=== PATIENT | female | born 1960 | race Caucasian/White ===

== ENCOUNTER 2018-01-24 16:58 | Observation (INO) ==
[2018-01-24 19:59] LABS: BASOPHILS # (AUTO) 0.1 X10^3/uL (0.0-0.1); BASOPHILS % (AUTO) 0.7 % (0.2-1.0); EOSINOPHILS # (AUTO) 0.7 x10^3/uL (0.0-0.2); HEMATOCRIT 32.7 % (36.0-47.0); HEMOGLOBIN 10.4 g/dL (12.0-16.0); LYMPHOCYTES # (AUTO) 2.3 X10^3/uL (1.3-2.9); LYMPHOCYTES % (AUTO) 19.1 % (21.0-51.0); MEAN CORPUSCULAR HEMOGLOBIN 23.3 pg (27.0-34.0); MEAN CORPUSCULAR HGB CONC 31.9 g/dL (33.0-35.0); MEAN CORPUSCULAR VOLUME 73.1 fL (80.0-100.0); MEAN PLATELET VOLUME 7.7 fL (7.4-11.0); MONOCYTES # (AUTO) 0.6 x10^3/uL (0.3-0.8); MONOCYTES % (AUTO) 4.5 % (0.0-13.0); NEUTROPHILS # (AUTO) 8.5 x10^3/uL (2.2-4.8); NEUTROPHILS % (AUTO) 69.7 % (42.0-75.0); PLATELET COUNT 351 X10^3/uL (150.0-450.0); RED BLOOD COUNT 4.47 X10^6/uL (3.5-5.4); RED CELL DISTRIBUTION WIDTH 18.4 % (11.6-16.5); WHITE BLOOD COUNT 12.3 X10^3/uL (3.6-10.0)
[2018-01-24 20:05] LABS: ANISOCYTOSIS SLIGHT; HYPOCHROMASIA 1+; MICROCYTOSIS SLIGHT; PLATELET MORPHOLOGY COMMENT NORMAL (NORMAL)
[2018-01-24 20:10] LABS: BILIRUBIN,URINE NEGATIVE (NEGATIVE); BLOOD/HEMOGLOBIN,URINE 1+ (NEGATIVE); GLUCOSE, URINE NEGATIVE (NEGATIVE); KETONES,URINE NEGATIVE (NEGATIVE); LEUKOCYTE ESTERASE ,URINE 2+ (NEGATIVE); NITRITES,URINE NEGATIVE (NEGATIVE); PROTEIN,URINE NEGATIVE (NEGATIVE); UROBILINOGEN,URINE NORMAL (NORMAL)
[2018-01-24 20:11] LABS: APPEARANCE,URINE CLEAR (CLEAR); COLOR,URINE YELLOW (YELLOW)
[2018-01-24 20:12] LABS: ALANINE AMINOTRANSFERASE 19 Units/L (12-78); ALBUMIN 4.1 g/dL (3.4-5.0); ALKALINE PHOSPHATASE 66 Units/L (46-116); ASPARTATE AMINO TRANSFERASE 17 Units/L (15-37); BLOOD UREA NITROGEN 11 mg/dL (7-18); CALCIUM 8.9 mg/dL (8.5-10.1); CARBON DIOXIDE 27.5 mmol/L (21-32); CHLORIDE 100 mmol/L (98-107); COR NA(FOR HYPERGLY) 139 mmol/L (136-145); CREATININE 0.83 mg/dL (0.55-1.02); MAGNESIUM 1.6 mg/dL (1.7-2.9); SODIUM 137 mmol/L (136-145); TOTAL PROTEIN 7.3 g/dL (6.4-8.2); eGFR NON BLACK RACES > 60 (>60)
[2018-01-24 20:18] LABS: BACTERIA,URINE TRACE /HPF (NEGATIVE); RBC,URINE 0-2 /HPF (NONE SEEN); SQUAMOUS EPITHELIAL CELL,UR FEW /HPF (NEGATIVE)
[2018-01-24 20:25] VITALS: BMI 28.7
[2018-01-24 20:25] LABS: CKMB % 2.1 % (<4); CREATINE KINASE 58 Units/L (26-192); CREATINE KINASE MB 1.2 ng/mL (0-4.0); TROPONIN I < 0.02 ng/mL (0-1.5)
[2018-01-24] MEDS ORDERED: PATIENT'S HOME MEDICATION PO SCH (21:00)
[2018-01-24] MEDS: CIPRO TAB 500 MG PO SCH (21:02)
[2018-01-24] MEDS: LOVENOX INJ 40 MG SYR SC SCH (21:02)
[2018-01-24] MEDS: MAGNESIUM SULFATE 1 GRAM/100 mL PREMIX 1 GM/100 ML BAG IV PRN ×2 (21:08→22:00)
[2018-01-25 02:07] LABS: CREATINE KINASE < 7 Units/L (26-192); CREATINE KINASE MB < 1.0 ng/mL (0-4.0); TROPONIN I 0.13 ng/mL (0-1.5)
[2018-01-25 05:09] LABS: BASOPHILS # (AUTO) 0.1 X10^3/uL (0.0-0.1); BASOPHILS % (AUTO) 0.8 % (0.2-1.0); EOSINOPHILS # (AUTO) 0.7 x10^3/uL (0.0-0.2); EOSINOPHILS % (AUTO) 6.2 % (0.9-2.9); HEMATOCRIT 33.2 % (36.0-47.0); HEMOGLOBIN 10.6 g/dL (12.0-16.0); LYMPHOCYTES # (AUTO) 2.5 X10^3/uL (1.3-2.9); MEAN CORPUSCULAR HEMOGLOBIN 23.3 pg (27.0-34.0); MEAN CORPUSCULAR VOLUME 72.6 fL (80.0-100.0); MEAN PLATELET VOLUME 8.1 fL (7.4-11.0); MONOCYTES # (AUTO) 0.6 x10^3/uL (0.3-0.8); MONOCYTES % (AUTO) 5.5 % (0.0-13.0); NEUTROPHILS # (AUTO) 7.5 x10^3/uL (2.2-4.8); NEUTROPHILS % (AUTO) 65.5 % (42.0-75.0); PLATELET COUNT 376 X10^3/uL (150.0-450.0); RED BLOOD COUNT 4.57 X10^6/uL (3.5-5.4); RED CELL DISTRIBUTION WIDTH 18.2 % (11.6-16.5); WHITE BLOOD COUNT 11.5 X10^3/uL (3.6-10.0)
[2018-01-25 05:17] LABS: ALANINE AMINOTRANSFERASE 18 Units/L (12-78); ALBUMIN 4.1 g/dL (3.4-5.0); ALKALINE PHOSPHATASE 62 Units/L (46-116); ASPARTATE AMINO TRANSFERASE 15 Units/L (15-37); BLOOD UREA NITROGEN 9 mg/dL (7-18); CALCIUM 8.7 mg/dL (8.5-10.1); CARBON DIOXIDE 27.7 mmol/L (21-32); CHLORIDE 103 mmol/L (98-107); CHOLESTEROL 175 mg/dL (0-200); COR NA(FOR HYPERGLY) 143 mmol/L (136-145); CREATININE 0.77 mg/dL (0.55-1.02); HDL CHOLESTEROL 44 mg/dL (40-60); SODIUM 141 mmol/L (136-145); TOTAL PROTEIN 7.4 g/dL (6.4-8.2); TRIGLYCERIDES 222 mg/dL (0-150); eGFR NON BLACK RACES > 60 (>60)
[2018-01-25 05:29] LABS: ANISOCYTOSIS SLIGHT; HYPOCHROMASIA 1+; PLATELET MORPHOLOGY COMMENT NORMAL (NORMAL)
--- NOTE | 2018-01-25 07:56 | DR.H&P ---
H&P - History & Physical for Day of: H&P Date: 01/25/08 - Chief Complaint Chief Complaint: Chest pain, fatigue - History of Present Illness History of Present Illness: The patient the a 57 yo WF who presents to the clinic with complaint of unusual chest pain. States similar to her previous MIs. Patient complains of pain to her back above probably line. States is a deep ache. Denies musculoskeletal pain. Has no reproducible pain in that area. Does have muscle soreness to upper scapula region. Patient denies shortness of breath or pleuritic pain. Does complain of increasing fatigue over the last several weeks. Does have history of CAD with OK 2. Has stents 3. EKG does read inferior apical infarct age presumed not recent. - Past Medical History Past Medical History: CHF, Coronary Artery Disease, Diabetes, Dyslipidemia, Hypertension, Kidney Stones, OK Additional Medical History: Low back pain - Past Surgical History Surgical History: Angioplasty/Stents, , Cholecystectomy, Hysterectomy, Ortho Surgery, Tonsillectomy Additional Surgical History: Cardiac Cath x 2 with 3 stents. Last cath [facility] - Family History Family Medical History: Diabetes Mellitus, Cancer, Hypertension - Social History Does patient currently use any type of tobacco product: No Have you used tobacco products in the last 12 months: No Type of Tobacco Use: None Alcohol Use: None Drug Use: None - Medications Home Medications: Penicillins Allergy (Verified 01/24/18 19:35) povidone-iodine [From Betadine] Allergy (Verified 01/24/18 19:35) soap [From Betadine] Allergy (Verified 01/24/18 19:35) CONTINUE taking the following medications ciprofloxacin HCl [Cipro] 1 tab PO BID 01/24/18 [History] dicyclomine 1 tab PO QID PRN 01/24/18 [History] diphenhydramine HCl 1 tab PO HS 01/24/18 [History] esomeprazole magnesium [Nexium 24HR] 1 tab PO DAILY 01/24/18 [History] hydrocodone-acetaminophen 1 tab PO TID PRN 01/24/18 [History] loratadine 1 tab PO DAILY 01/24/18 [History] montelukast [Singulair] 1 tab PO DAILY 01/24/18 [History] potassium chloride [Klor-Con M20] 1 tab PO DAILY 01/24/18 [History] simvastatin 1 tab PO HS 01/24/18 [History] tizanidine 1 tab PO TID PRN 01/24/18 [History] - Review of Systems Constitutional: Weakness, Malaise Eyes: No Symptoms Reported ENT: No Symptoms Reported Respiratory: No Symptoms Reported Cardiovascular: Chest Pain Gastrointestinal: Nausea Genitourinary: No Symptoms Reported Musculoskeletal: See HPI, Back Pain Skin: No Symptoms Reported Neurological: No Symptoms Reported - Physical Exam Vital Signs: Temperature 98.8 F Pulse Rate [Radial] 82 Respiratory Rate 20 Blood Pressure [Right Arm] 139/73 Blood Pressure [Left Arm] 123/63 Blood Pressure 119/62 O2 Sat by Pulse Oximetry 98 Oriented: Normal Eyes: Normal Ear: Normal Nose: Normal Throat: Normal Respiratory: Clear Throughout Cardiovascular: Normal : Normal Auscultation: Bowel Sounds: Normal Palpation: Normal Tenderness: Normal Skin: Normal Musculoskeletal: Back:Thoracic (Upper scapula tenderness) Psychiatric: Normal Mood Description: Anxious Affect: Anxious Speech Pattern: Clear - Assessment/Plan (1) Chest discomfort Status: Acute Plan: serial cardiac enzymes and EKGs. Possible transfer to [facility] (2) CAD (coronary artery disease) Status: Chronic Plan: home medications (3) HTN (hypertension) Qualifiers: Hypertension type: essential hypertension Qualified Code(s): I10 - Essential (primary) hypertension Status: Chronic Plan: continue home medications (4) Diabetes mellitus Qualifiers: Diabetes mellitus type: type 2 Chronic kidney disease stage: stage 1 Status: Chronic Plan: monitor blood sugars with when necessary coverage - Allergies Allergies/Adverse Reactions: Allergies Allergy/AdvReac Type Severity Reaction Status Date / Time Penicillins Allergy Verified 01/24/18 19:35 povidone-iodine Allergy Verified 01/24/18 19:35 [From Betadine] soap [From Betadine] Allergy Verified 01/24/18 19:35
[2018-01-25] MEDS ORDERED: ZOFRAN TAB 4 MG SL PRN (08:01)
[2018-01-25] MEDS ORDERED: ZOFRAN INJ 4 MG VIAL IVP PRN ×2 (08:01→12:56)
[2018-01-25 08:40] LABS: CKMB % 1.6 % (<4); CREATINE KINASE 64 Units/L (26-192); TROPONIN I < 0.02 ng/mL (0-1.5)
[2018-01-25] MEDS: CIPRO TAB 500 MG PO SCH (08:57)
[2018-01-25] MEDS: DEMEROL INJ IVP PRN ×2 (08:57→13:05)
[2018-01-25] MEDS: LOVENOX INJ 40 MG SYR SC SCH (08:57)
[2018-01-25] MEDS ORDERED: HumuLIN R SC PRN (09:00)
[2018-01-25] MEDS ORDERED: ASPIRIN PO SCH (09:00)
[2018-01-25 12:13] VITALS: BP 132/76
[2018-01-25] MEDS ORDERED: SNACK - Diabetic Appropriate PO SCH (20:00)
== END 2018-01-25 13:50 | disposition short-term general hospital (02) ==
LOC: MED/SURG
PROVIDERS: ADMIT Internal Medicine; ATTEND Internal Medicine
DX: Z79.01 Long term (current) use of anticoagulants; R94.31 Abnormal electrocardiogram [ECG] [EKG]; Z79.899 Other long term (current) drug therapy; E11.65 Type 2 diabetes mellitus with hyperglycemia; D72.828 Other elevated white blood cell count; I25.10 Atherosclerotic heart disease of native coronary artery without angina pectoris; R53.83 Other fatigue; R07.89 Other chest pain; M54.5 Low back pain; D64.89 Other specified anemias
CPT/HCPCS: 36415; 80053; 80061; 81001; 82550; 82553; 83735; 84484; 85025; 85610; 85730; 87086; 93005; 93010; 94760; A4216; A4222; G0378; J1650; J2175; J2405; J3475